=== PATIENT | female | born 1955 | race Caucasian/White ===

== ENCOUNTER 2017-01-18 18:20 | Emergency (ER) | payer OTHER ==
[~2017-01-18] VITALS: Ht 167.6 cm; Wt 65.8 kg
--- NOTE | 2017-01-18 18:38 | ED SKIN/ALLERGY COMPLAINT ---
History of Present Illness General Chief Complaint: Skin Rash/ Abcess Stated Complaint: RASH Source: patient Exam Limitations: no limitations Vital Signs & Intake/Output Vital Signs & Intake/Output Vital Signs Date Time Temp Pulse Resp B/P Pulse O2 O2 Flow FiO2 Ox Delivery Rate 01/19 1848 146/89 01/18 1827 98.1 76 20 97 Room Air Allergies Coded Allergies: No Known Allergies (01/18/17) Reconcile Medications Hydroxyzine HCl 50 MG TABLET 1 TAB PO Q6H PRN RASH/ITCH Prednisone 10 MG TABLET 1 TAB PO DAILY poison mary day 1,2: 6 tabs po qd day 3,4: 5 tabs po qd day 5,6: 4 tabs po qd day 7,8: 3 tabs po qd day 9,10: 2 tabs po qd day 11,12: 1 tab po qd Triage Note: PRESENTS TO ED FOR EVALUATION OF BODY RASH. POSSIBLE POISON IV. HAS BEEN WORKING ON HER YARD RECENTLY. BILATERAL FOREARM REDNESS AND SWELLING NOTED. Triage Nurses Notes Reviewed? yes HPI: Patient is a 61-year-old complains of severely pruritic rash 3 days. Patient reports that she has been working outside and believes that she may have come in contact with poison oak or poison mary. States is severe. Patient has been using an anti-itch spray and ibuprofen with no improvement. Patient denies fevers, chills, tongue swelling, throat swelling, dyspnea. (RADHA MOLINA) Past History Travel History Traveled to [place] past 21 day No Medical History Any Pertinent Medical History? none Surgical History Surgical History: non-contributory Psychosocial History What is your primary language Turkish Tobacco Use: Current Daily Use Daily Tobacco Use Amount/Type: => 5 Cigarettes daily Family History Hx Contributory? No (RADHA MOLINA) Review of Systems Review of Systems Constitutional: Denies: chills, fever. EENTM: Denies: throat swelling. Respiratory: Denies: short of breath. Cardiovascular: Reports: no symptoms. GI: Reports: no symptoms. Skin: Reports: see HPI. Neurological/Psychological: Reports: no symptoms. Hematologic/Endocrine: Reports: no symptoms. Immunologic/Allergic: Reports: no symptoms. (RADHA MOLINA) Physical Exam Physical Exam General Appearance: well developed/nourished, alert, awake Head: atraumatic, normal appearance Eyes: Bilateral: normal appearance. Ears, Nose, Throat: normal pharynx, normal ENT inspection, hearing grossly normal Neck: normal inspection, supple, full range of motion Respiratory: no respiratory distress Back: normal range of motion Extremities: patchy and papular red rash to bilateral upper extremities with excoriations. Neurologic/Psych: awake, alert, oriented x 3, normal gait, normal mood/affect Skin: see extremities exam (RADHA MOLINA) Progress Differential Diagnosis: abscess/cellulitis, allergic reaction, contact dermatitis, drug reaction, urticaria Plan of Care: Current Medications Sig/Adina Start time Last Medication Dose Stop Time Status Admin Hydroxyzine HCl 50 MG ONCE ONE 01/18 1845 AC (Atarax) 01/18 1846 Prednisone 60 MG ONCE ONE 01/18 1845 AC 01/18 1846 Rash appears consistent with contact dermatitis, suspect rhus dermatitis. No signs of anaphylaxis, no signs of superimposed bacterial infection. (RADHA MOLINA) Departure Departure Time of Disposition: 1843 Disposition: HOME OR SELF CARE Condition: Stable Clinical Impression Primary Impression: Rhus dermatitis Referrals: PATIENT HAS NO PRIMARY CARE DR (PCP/Family) Additional Instructions: Return to the emergency department if he developed fevers, difficulty breathing, or worsening of symptoms. Departure Forms: Customer Survey General Discharge Information Prescriptions: Current Visit Scripts Prednisone 1 TAB PO DAILY #42 TAB day 1,2: 6 tabs po qd day 3,4: 5 tabs po qd day 5,6: 4 tabs po qd day 7,8: 3 tabs po qd day 9,10: 2 tabs po qd day 11,12: 1 tab po qd Hydroxyzine HCl 1 TAB PO Q6H PRN RASH/ITCH #20 TAB (RADHA MOLINA) PA/PATTERNMAKER GRADER Co-Sign Statement Statement: ED Attending supervision documentation- [] I saw and evaluated the patient. I have also reviewed all the pertinent lab results and diagnostic results. I agree with the findings and the plan of care as documented in the PA's/PATTERNMAKER GRADER's documentation. [X] I have reviewed the ED Record and agree with the PA's/PATTERNMAKER GRADER's documentation. [] Additions or exceptions (if any) to the PAs/PATTERNMAKER GRADER's note and plan are summarized below: [] (NABEEL ARGUELLES,MARK Holman
[2017-01-18] MEDS ORDERED: PREDNISONE10 M2 PO (18:47)
[2017-01-18] MEDS ORDERED: HYDROXYZINE HCL50 M1 PO (18:47)
[2017-01-18 18:48] VITALS: BP 146/89
== END 2017-01-18 19:03 ==
LOC: ERH 18:20
DX: L30.9 Dermatitis, unspecified (principal)